=== PATIENT | female | born 1985 | race Caucasian/White ===

== ENCOUNTER 2018-02-25 16:20 | Day surgery (SDC) | payer OTHER ==
[~2018-02-25] VITALS: Ht 157.5 cm; Wt 73.6 kg
[2018-02-25 16:50] VITALS: BP 134/90
[2018-02-25 17:07] LABS: BASOPHILS # (AUTO) 0.05 x10^3/uL (0-0.1); BASOPHILS % (AUTO) 1 % (0-1); EOSINOPHILS # (AUTO) 0.22 x10^3/uL (0-0.4); EOSINOPHILS % (AUTO) 2 % (1-7); LYMPHOCYTES # (AUTO) 2.73 x10^3/uL (1-3.4); LYMPHOCYTES % (AUTO) 26 % (22-44); MD NO; MEAN CORPUSCULAR HEMOGLOBIN 32.8 pg (27.0-34.8); MEAN CORPUSCULAR HGB CONC 34.1 g/dL (32.4-35.8); MEAN PLATELET VOLUME 7.3 fL (7.4-10.4); MONOCYTES # (AUTO) 0.75 x10^3/uL (0.2-0.8); MONOCYTES % (AUTO) 7 % (2-9); NEUTROPHILS # (AUTO) 6.92 x10^3/uL (1.8-6.8); NEUTROPHILS % (AUTO) 65 % (42-75); PLATELET COUNT 291 x10^3/uL (130-400); RED BLOOD COUNT 4.55 x10^6/uL (3.82-5.3); RED CELL DISTRIBUTION WIDTH 12.9 % (9.6-15.2)
[2018-02-25 17:17] LABS: ANION GAP 7 mmol/L (5-15); CHLORIDE 107 mmol/L (98-107); CREATININE 0.68 mg/dL (0.55-1.02)
[2018-02-25] MEDS ORDERED: OXYTOCIN 10 UNITS/ML, 1ML ONE (17:30)
[2018-02-25] MEDS ORDERED: MISOPROSTOL 200 MCG TABLET ONE (17:30)
[2018-02-25] MEDS ORDERED: SILVER NITRATE STICK TP ONE (17:31)
[2018-02-25] MEDS ORDERED: METHYLERGONOVINE 0.2 MG/ML IM ONE (17:31)
[2018-02-25] MEDS ORDERED: LIDOCAINE-MPF 1%, 5ML ONE (17:36)
[2018-02-25] MEDS ORDERED: VASOPRESSIN 20 UNIT/ML, 1ML ONE (17:36)
[2018-02-25] MEDS ORDERED: FENTANYL PF 100 MCG/2ML ONE ×2 (17:45→18:34)
[2018-02-25] MEDS ORDERED: MIDAZOLAM 1 MG/ML, 2ML ONE (17:45)
[2018-02-25] MEDS ORDERED: MIDAZOLAM 1 MG/ML, 2ML IV PRN (18:00)
[2018-02-25] MEDS ORDERED: hydrALAzine 20 MG/ML, 1ML IV PRN (18:00)
[2018-02-25] MEDS ORDERED: SCOPOLAMINE PATCH, 1.5MG PATCH.TD72 TD PRN (18:00)
[2018-02-25] MEDS ORDERED: METOPROLOL 1 MG/ML, 5ML IV PRN (18:00)
[2018-02-25] MEDS ORDERED: ACETAMINOPHEN 325 MG TABLET PO PRN (18:00)
[2018-02-25] MEDS ORDERED: MEPERIDINE/PF 25MG/0.5ML IVPush PRN (18:00)
[2018-02-25] MEDS ORDERED: ONDANSETRON 2MG/ML, 2ML IV PRN (18:00)
[2018-02-25] MEDS ORDERED: OXYcodone 5 MG/5 ML ORAL.SOL UDC PO PRN ×2 (18:00→19:30)
[2018-02-25] MEDS ORDERED: PROMETHAZINE 25 MG/ML, 1ML IV PRN (18:00)
[2018-02-25] MEDS ORDERED: ALBUTEROL/IPRATROPIUM 2.5MG/0.5MG, 3 ML NPPB PRN (18:00)
[2018-02-25] MEDS ORDERED: ONDANSETRON 2MG/ML, 2ML ONE (18:15)
[2018-02-25] MEDS ORDERED: DEXAMETHASONE 4 MG/ML, 1ML ONE (18:15)
[2018-02-25] MEDS ORDERED: CEFAZOLIN 1,000 MG ONE (18:15)
[2018-02-25] MEDS ORDERED: PROPOFOL 10 MG/ML, 20ML ONE (18:15)
[2018-02-25] MEDS ORDERED: ACETAMINOPHEN 650 MG/20.3 ML UDC ONE (18:34)
[2018-02-25] MEDS ORDERED: OXYcodone 5 MG/5 ML ORAL.SOL UDC ONE (18:34)
[2018-02-25] MEDS: FENTANYL PF 100 MCG/2ML IV PRN ×2 (18:38→18:47)
[2018-02-25] MEDS ORDERED: LACTATED RINGERS 1,000 ML IV SCH (19:26)
[2018-02-25 19:28] VITALS: BP 127/81
[2018-02-25] MEDS ORDERED: ONDANSETRON 2MG/ML, 2ML IVPush PRN (19:30)
[2018-02-25] MEDS ORDERED: PROMETHAZINE 12.5 MG SUPP PR ONE (19:30)
[2018-02-25] MEDS ORDERED: PROMETHAZINE 25 MG/ML, 1ML IVPush ONE (19:30)
[2018-02-25] MEDS ORDERED: KETOROLAC 30 MG/1 ML IVPush PRN (19:30)
[2018-02-25] MEDS ORDERED: PROMETHAZINE 25 MG SUPP PR ONE (19:30)
[2018-02-25] MEDS ORDERED: morphine SULFATE 10 MG/ML, 1ML IVPush PRN (19:30)
[2018-02-25] MEDS ORDERED: ACETAMINOPHEN 1,000 MG/100 ML IV IVPB ONE (19:30)
[2018-02-25] MEDS ORDERED: IBUP-11 PO (19:55)
[2018-02-25] MEDS ORDERED: OXYC-302 PO (19:56)
[2018-02-25 21:00] VITALS: BP 120/83
== END 2018-02-25 21:25 | disposition home or self-care (01) ==
LOC: OR 16:20 → 4NOR 16:27 → OR 21:25
PROVIDERS: ATTEND Obstetrics & Gynecology
DX: O02.1 Missed abortion (principal); G89.18 Other acute postprocedural pain; Z67.90 Unspecified blood type, Rh positive; Z98.890 Other specified postprocedural states; Z79.890 Hormone replacement therapy; Z79.899 Other long term (current) drug therapy
CPT/HCPCS: 36415; 59820; 71046; 80048; 84439; 84443; 84702; 85025; 86850; 86900; 88305; J1100; J2250; J2405; J2704; J3010; G0378; J0690; J2210; J2590

== ENCOUNTER 2020-05-20 05:05 | Emergency (ER) | payer OTHER ==
[~2020-05-20] VITALS: Ht 157.5 cm; Wt 89.4 kg
[~2020-05-20 05:05] MED LIST: IBUP-11 PO; OXYC1TAB14 PO
[2020-05-20 05:07] VITALS: BP 151/98
== END 2020-05-20 05:36 | disposition home or self-care (01) ==
LOC: ED 05:27
DX: O26.893 Other specified pregnancy related conditions, third trimester (principal); M26.622 Arthralgia of left temporomandibular joint; Z3A.35 35 weeks gestation of pregnancy
CPT/HCPCS: 99282